=== PATIENT | male | born 1965 | race Caucasian/White ===

== ENCOUNTER 2017-03-29 10:29 | Emergency (ER) | payer BC ==
--- NOTE | 2017-03-29 11:01 | XRAY Preliminary Report ---
Exam: XR Chest 2 View PA/LAT IMPRESSION: Normal chest for age, body size and inspiratory effort. No radiographic evidence for aspi ration pneumonia or other acute process. [facility] SITE ID: [id number]
--- NOTE | 2017-03-29 11:04 | XRAY Report ---
EXAM: CHEST RADIOGRAPHY, 2 VIEWS EXAM DATE: 03/29/2017 10:41 AM. CLINICAL HISTORY: Possible aspiration in a 51-year-old male with SOA. COMPARISON: None. TECHNIQUE: Upright PA and lateral views. FINDINGS: Lungs/Pleura: No focal opacities evident. No pleural effusion. No pneumothorax. Suboptimal inspirator y effort.. Mediastinum: Heart and mediastinal contours are unremarkable. No pulmonary vascular congestion or mya nopathy. Other: Trachea is midline. Osseous structures are unremarkable for age. IMPRESSION: Normal chest for age, body size and inspiratory effort. No radiographic evidence for aspi ration pneumonia or other acute process. [facility] Referring Provider Line: [phone] SITE ID: [id number]
[2017-03-29 11:50] LABS: BASOPHILS # (AUTO) 0.1 10^3/uL (0.0-0.1); BASOPHILS % (AUTO) 0.7 %; EOSINOPHILS # (AUTO) 0.1 10^3/uL (0.0-0.7); EOSINOPHILS % (AUTO) 0.7 %; HGB - HEMOGLOBIN 15.4 g/dL (14.0-18.0); LYMPHOCYTES % (AUTO) 16.6 %; MEAN CORPUSCULAR HEMOGLOBIN 30.2 pg (27.0-31.0); MEAN CORPUSCULAR HGB CONC 34.1 g/dL (32.0-36.0); MEAN CORPUSCULAR VOLUME 88.6 fL (80.0-94.0); MEAN PLATELET VOLUME 6.9 fL (7.4-11.4); MONOCYTES # (AUTO) 0.8 10^3/uL (0.0-1.0); MONOCYTES % (AUTO) 6.7 %; NEUTROPHILS # (AUTO) 9.2 10^3/uL (1.5-6.6); NEUTROPHILS % (AUTO) 75.3 %; RED BLOOD COUNT 5.09 10^6/uL (4.70-6.10); RED CELL DISTRIBUTION WIDTH 13.1 % (12.0-15.0); UNCORRECTED WHITE BLOOD COUNT 12.2 x10^3/uL; WHITE BLOOD COUNT 12.2 x10^3/uL (4.8-10.8)
[2017-03-29 11:53] LABS: ALBUMIN/GLOBULIN RATIO 1.6 (1.0-2.2); BILIRUBIN,TOTAL 0.9 mg/dL (0.2-1.0); CALCIUM 9.1 mg/dL (8.5-10.3); CREATININE 0.9 mg/dL (0.6-1.2); POTASSIUM 3.7 mmol/L (3.5-5.0); TOTAL PROTEIN 7.4 g/dL (6.7-8.2)
[2017-03-29] MEDS ORDERED: LIDOCAINE VISCOUS 2% 15 ML UDC MM STA (12:41)
[2017-03-29] MEDS ORDERED: MAG HYDROX/AL HYDROX/SIMETH 30 ML UDC PO STA (12:41)
--- NOTE | 2017-03-29 12:45 | ED Physician Documentation ---
PD HPI CHEST PAIN - Stated complaint Stated Complaint: SOA - Chief complaint Chief Complaint: Resp - History obtained from History obtained from: Patient - History of Present Illness Timing - onset: Other (Healthy 51-year-old gentleman visiting here from [place] started coughing last night and coughed up something was yellow and tasted like stomach acid and had chest burning and shortness of breath and developed some panicky shortness of breath with it. He denies any hemoptysis, leg pain or swelling. He feels a little better now. He did not take his Nexium today but did take it yesterday.) Review of Systems Constitutional: denies: Fever, Chills Nose: denies: Rhinorrhea / runny nose, Congestion Throat: reports: Sore throat Cardiac: reports: Chest pain / pressure. denies: Palpitations, Pedal edema, Calf pain Respiratory: reports: Dyspnea, Cough. denies: Hemoptysis, Wheezing PD PAST MEDICAL HISTORY - Past Medical History Past Medical History: Yes GI: GERD Musculoskeletal: Gout - Past Surgical History Past Surgical History: Yes - Present Medications Home Medications: Ambulatory Orders Medication Instructions Recorded Confirmed Sucralfate 1 gm PO ACHS #40 tablet 03/29/17 - Allergies Allergies/Adverse Reactions: Allergies Allergy/AdvReac Type Severity Reaction Status Date / Time cefaclor [From [facility]] Allergy Rash Verified 03/29/17 10:36 hydrocodone Allergy Nausea Verified 03/29/17 10:36 Penicillins Allergy Rash Verified 03/29/17 10:36 - Social History Does the pt smoke?: No Smoking Status: Never smoker Does the pt have substance abuse?: No - Immunizations Immunizations are current?: Yes PD ED PE NORMAL - Vitals Vital signs reviewed: Yes - General General: Alert and oriented X 3, No acute distress - HEENT HEENT: Pharynx benign - Neck Neck: Supple, no meningeal sign, No bony TTP - Cardiac Cardiac: RRR, No murmur - Respiratory Respiratory: No respiratory distress, Clear bilaterally - Abdomen Abdomen: Soft, Non tender - Back Back: No CVA TTP, No spinal TTP - Extremities Extremities: No edema, No calf tenderness / cord - Neuro Neuro: Alert and oriented X 3, Normal speech - Psych Psych: Normal mood, Normal affect Results - Vitals Vitals: Vital Signs - 24 hr 03/29/17 03/29/17 10:32 12:53 Temperature 36.3 C L Heart Rate 89 94 Respiratory 20 15 Rate Blood Pressure 165/102 H 154/102 H O2 Saturation 100 99 Oxygen O2 Source Room air - EKG (time done) 1045 Rate: Rate (enter#) (82) Rhythm: NSR [place]: Normal Intervals: Normal RI QRS: Normal Ischemia: Normal ST segments Computer interpretation: Agree with computer - Labs Labs: Laboratory Tests 03/29/17 03/29/17 03/29/17 11:33 11:33 11:33 WBC 12.2 H RBC 5.09 Hgb 15.4 Hct 45.0 MCV 88.6 MCH 30.2 MCHC 34.1 RDW 13.1 Plt Count 261 MPV 6.9 L Neut # 9.2 H Lymph # 2.0 [place] # 0.8 Eos # 0.1 Baso # 0.1 Absolute Nucleated RBC 0.00 Nucleated RBCs 0.0 Sodium 137 Potassium 3.7 Chloride 101 Carbon Dioxide 28 Anion Gap 8.0 BUN 12 Creatinine 0.9 Estimated GFR (MDRD) 89 Glucose 102 H Calcium 9.1 Total Bilirubin 0.9 AST 34 ALT 52 Alkaline Phosphatase 49 Troponin I < 0.04 Total Protein 7.4 Albumin 4.5 Globulin 2.9 Albumin/Globulin Ratio 1.6 Lipase 25 PD MEDICAL DECISION MAKING - ED course ED course: 51-year-old gentleman with what sounds like reflux esophagitis based on history , no evidence of ischemia on EKG or troponin, Complete relief with GI cocktail. Departure - Departure Disposition: 01 Home, Self Care Clinical Impression: GERD (gastroesophageal reflux disease) Qualifiers: Esophagitis presence: with esophagitis Qualified Code(s): K21.0 - Gastro- esophageal reflux disease with esophagitis Condition: Good Record reviewed to determine appropriate education?: Yes Instructions: GERD Dc Prescriptions: Sucralfate 1 gm PO ACHS #40 tablet Comments: Nexium to twice a day, do not take it or any other of your medications within half an hour of taking the sucralfate. Return if worse. Your blood pressure was elevated today on check into the emergency department. This does not mean that you have hypertension, it is a common phenomenon to come to the emergency department and have elevated blood pressure. I recommend that she see her primary care physician within the week to have it rechecked when you are feeling better. Call your doctor to arrange a follow-up appointment, make the next available appointment. In the interim, return anytime if worse or if new symptoms develop.
[2017-03-29] MEDS ORDERED: MAG HYDROX/AL HYDROX/SIMETH 30 ML UDC ONE (12:46)
[2017-03-29] MEDS ORDERED: LIDOCAINE VISCOUS 2% 15 ML UDC MM ONE (12:46)
[2017-03-29 12:56] VITALS: BP 154/102
== END 2017-03-29 13:14 | disposition home or self-care (01) ==
LOC: ED 10:29
DX: K21.0 Gastro-esophageal reflux disease with esophagitis (principal); R03.0 Elevated blood-pressure reading, without diagnosis of hypertension
CPT/HCPCS: 36415; 71020; 80053; 83690; 84484; 85025; 93005; 99283; 99284; A9270